=== PATIENT | male | born 1990 | race Caucasian/White ===

== ENCOUNTER → 2017-10-18 | Emergency (ER) | payer OTHER ==
[~2017-10-18] VITALS: Ht 182.9 cm; Wt 77.6 kg
== END | disposition home or self-care (01) ==
LOC: ER 22:12
DX: S62.627A Displaced fracture of middle phalanx of left little finger, initial encounter for closed fracture (principal); W22.8XXA Striking against or struck by other objects, initial encounter; Y93.66 Activity, soccer; Y92.89 Other specified places as the place of occurrence of the external cause; Y99.8 Other external cause status